=== PATIENT | female | born 1985 | race Caucasian/White ===

== ENCOUNTER 2018-01-10 10:26 | Inpatient (IN) | payer MEDICAID ==
[~2018-01-10 10:26] MED LIST: OXYTOCIN 30 UNITS/LR 500 ML BAG IV
[2018-01-10] MEDS: LACTATED RINGER'S 1,000 ML IV ×3 (11:25→15:41)
[2018-01-10] MEDS ORDERED: OXYTOCIN 30 UNITS/LR 500 ML IV ×2 (11:30→20:00)
[2018-01-10] MEDS ORDERED: MISOPROSTOL 200 MCG TAB PR ×2 (11:30→20:00)
[2018-01-10] MEDS ORDERED: CARBOPROST 250 MCG INJ IM ×2 (11:30→20:00)
[2018-01-10] MEDS ORDERED: METHYLERGONOVINE 0.2 MG INJ IM ×2 (11:30→20:00)
[2018-01-10 11:38] LABS: ADD MAN DIFF? NO
[2018-01-10 12:16] LABS: BASOPHILS % 0.4 % (0.0-2.0); EOSINOPHILS # 0.1 10^3/ul (0.0-0.5); EOSINOPHILS % 1.5 % (0.0-7.0); HEMATOCRIT 34.6 % (37.0-47.0); HEMOGLOBIN 11.4 g/dl (12.0-16.0); LYMPHOCYTES # 1.1 10^3/ul (0.8-2.9); LYMPHOCYTES % 20.3 % (15.0-51.0); MEAN CORPUSCULAR HEMOGLOBIN 26.8 pg (29.0-33.0); MEAN CORPUSCULAR HGB CONC 32.9 g/dl (32.0-37.0); MEAN CORPUSCULAR VOLUME 81.4 fl (82.0-101.0); MEAN PLATELET VOLUME 12.3 fl (7.4-10.4); MONOCYTE # 0.4 10^3/ul (0.3-0.9); MONOCYTES % 8.4 % (0.0-11.0); NEUTROPHIL # 3.6 10^3/ul (1.6-7.5); NEUTROPHILS % 68.4 % (39.0-77.0); PLATELET COUNT 187 10^3/UL (140-415); RED BLOOD COUNT 4.25 10^6/ul (4.20-5.40); RED CELL DISTRIBUTION WIDTH 14.5 % (11.5-14.5)
[2018-01-10 12:16] LABS: WHITE BLOOD COUNT 5.2 10^3/ul (4.8-10.8)
[2018-01-10 12:19] LABS: INR 0.84; PROTIME 11.6 Sec (11.9-14.9); PT RATIO 0.9
[2018-01-10 12:20] LABS: PARTIAL THROMBOPLASTIN TIME 28.4 Sec (25.0-35.0)
[2018-01-10 12:36] LABS: HEPATITIS B SURFACE ANTIGEN NEGATIVE (NEGATIVE)
[2018-01-10] MEDS ORDERED: morphine SULFATE/PF (10 MG/10 ML) INJ (17:11)
[2018-01-10] MEDS ORDERED: ONDANSETRON 4 MG INJ (17:11)
[2018-01-10] MEDS ORDERED: PHENYLephrine (100 MCG/ML) 5ML SYG (17:11)
[2018-01-10] MEDS ORDERED: OXYTOCIN 10 UNIT INJ (17:11)
[2018-01-10] MEDS ORDERED: BUPIVACAINE 0.75%/DEXT (SPINAL) 2 ML INJ (17:11)
[2018-01-10] MEDS ORDERED: SCOPOLAMINE 1.5 MG PATCH (17:11)
[2018-01-10] MEDS: OXYTOCIN 30 UNITS/LR 500 ML IV (19:04)
[2018-01-10] MEDS: AZITHROMYCIN 500MG/NS (PMX) 250 ML IVPB (19:16)
[2018-01-10] MEDS: CEFAZOLIN 2 GM/50 ML (PMX) 50 ML IV (19:24)
[2018-01-10] MEDS ORDERED: NALOXONE (0.4 MG/ML) INJ IV (19:30)
[2018-01-10] MEDS ORDERED: morphine 2 MG INJ IV (19:30)
[2018-01-10] MEDS ORDERED: DIPHENHYDRAMINE 50 MG INJ IV (19:30)
[2018-01-10 19:36] LABS: RAPID PLASMA REAGIN NONREACTIVE (NR)
[2018-01-10] MEDS: ONDANSETRON 4 MG INJ IV (20:03)
[2018-01-10] MEDS: KETOROLAC 30 MG INJ IV (20:55)
[2018-01-11] MEDS: CLINDAMYCIN 300 MG CAP PO ×4 (00:04→18:15)
[2018-01-11] MEDS: OXYTOCIN 30 UNITS/LR 500 ML IV (00:56)
[2018-01-11] MEDS: KETOROLAC 30 MG INJ IV ×2 (06:13→16:40)
[2018-01-11 09:44] LABS: ADD MAN DIFF? NO
[2018-01-11 09:49] LABS: BASOPHILS % 0.2 % (0.0-2.0); EOSINOPHILS % 0.4 % (0.0-7.0); HEMATOCRIT 32.5 % (37.0-47.0); HEMOGLOBIN 10.6 g/dl (12.0-16.0); LYMPHOCYTES # 1.2 10^3/ul (0.8-2.9); LYMPHOCYTES % 14.9 % (15.0-51.0); MEAN CORPUSCULAR HEMOGLOBIN 26.2 pg (29.0-33.0); MEAN CORPUSCULAR HGB CONC 32.6 g/dl (32.0-37.0); MEAN CORPUSCULAR VOLUME 80.4 fl (82.0-101.0); MEAN PLATELET VOLUME 12.3 fl (7.4-10.4); MONOCYTE # 0.5 10^3/ul (0.3-0.9); MONOCYTES % 6.1 % (0.0-11.0); NEUTROPHIL # 6.5 10^3/ul (1.6-7.5); NEUTROPHILS % 78.2 % (39.0-77.0); PLATELET COUNT 189 10^3/UL (140-415); RED BLOOD COUNT 4.04 10^6/ul (4.20-5.40); RED CELL DISTRIBUTION WIDTH 14.5 % (11.5-14.5)
[2018-01-11 09:49] LABS: WHITE BLOOD COUNT 8.3 10^3/ul (4.8-10.8)
[2018-01-11] MEDS: LACTATED RINGER'S 1,000 ML IV ×2 (10:34→18:30)
[2018-01-11] MEDS ORDERED: BISACODYL 10 MG SUPP PR (11:00)
[2018-01-11] MEDS ORDERED: SENNA TAB PO (18:00)
[2018-01-11] MEDS: HYDROCODONE/APAP (5/325) TAB PO (21:36)
[2018-01-11] MEDS: BISACODYL 10 MG SUPP PR (21:36)
[2018-01-12] MEDS: CLINDAMYCIN 300 MG CAP PO ×5 (00:13→23:07)
[2018-01-12] MEDS: HYDROCODONE/APAP (5/325) TAB PO (02:18)
[2018-01-12] MEDS: LACTATED RINGER'S 1,000 ML IV (02:30)
[2018-01-12] MEDS: OXYCODONE/ACETAMINOPHEN (5/325) TAB PO ×3 (07:30→23:08)
[2018-01-12] MEDS: BISACODYL 10 MG SUPP PR (09:45)
[2018-01-12] MEDS: MAGNESIUM HYDROXIDE 30ML CUP PO (23:07)
[2018-01-13] MEDS: OXYCODONE/ACETAMINOPHEN (5/325) TAB PO ×3 (02:20→12:37)
[2018-01-13] MEDS: CLINDAMYCIN 300 MG CAP PO ×2 (05:19→12:36)
== END 2018-01-13 13:40 | disposition home or self-care (01) | DRG 766 ==
LOC: L-D 10:26 → PP1 21:13
PROVIDERS: Obstetrics & Gynecology
PROC: 10D00Z1 Extraction of Products of Conception, Low, Open Approach (ICD-10-PCS; principal; 2018-01-10 12:30)
DX: O34.219 Maternal care for unspecified type scar from previous cesarean delivery (principal); Z3A.39 39 weeks gestation of pregnancy; Z37.0 Single live birth
CPT/HCPCS: 85025; 85610; 85730; 86592; 86850; 86900; 86901; 87340; 99464